=== PATIENT | female | born 1940 | race Caucasian/White ===

== ENCOUNTER → 2019-05-30 13:46 | Outpatient (BNVA) | payer MEDICARE, SELFPAY | PROVIDERS: Family Provider Nurse Practitioner Family; PCP Nurse Practitioner Family; Visit Provider Nurse Practitioner Family | DX: G89.29 Other chronic pain (principal); M16.11 Unilateral primary osteoarthritis, right hip; M25.552 Pain in left hip; M79.10 Myalgia, unspecified site | CPT/HCPCS: 73521; 84550; 85651; 86140; 86431 ==

== ENCOUNTER → 2019-07-04 11:37 | Outpatient (BNVA) | payer MEDICARE, SELFPAY | PROVIDERS: Visit Provider Internal Medicine | DX: N18.3 Chronic kidney disease, stage 3 (moderate) (principal) | CPT/HCPCS: 80048; 81001; 82310; 83735; 83970; 84100; 84550 ==

== ENCOUNTER → 2019-07-13 11:08 | Outpatient (BNVA) | payer MEDICARE, SELFPAY | PROVIDERS: Visit Provider Specialist | DX: M25.551 Pain in right hip (principal); M25.552 Pain in left hip | CPT/HCPCS: 73522; 73523 ==

== ENCOUNTER → 2019-07-21 14:53 | Outpatient (BNVA) | payer MEDICARE, SELFPAY | PROVIDERS: Visit Provider Nurse Practitioner Family | DX: R30.0 Dysuria (principal); R19.7 Diarrhea, unspecified; R39.9 Unspecified symptoms and signs involving the genitourinary system; B37.3 Candidiasis of vulva and vagina | CPT/HCPCS: 81001; 87086 ==

== ENCOUNTER → 2019-07-22 10:31 | Outpatient (BNVA) | payer MEDICARE, SELFPAY | PROVIDERS: Visit Provider Nurse Practitioner Family | DX: R19.7 Diarrhea, unspecified (principal) | CPT/HCPCS: 87493; 87505 ==

== ENCOUNTER → 2019-08-18 12:56 | Outpatient (BNVA) | payer MEDICARE, SELFPAY | PROVIDERS: Family Provider Nurse Practitioner Family; Visit Provider Specialist | DX: G43.909 Migraine, unspecified, not intractable, without status migrainosus (principal); Z87.891 Personal history of nicotine dependence | CPT/HCPCS: 99212 ==

== ENCOUNTER → 2019-11-09 11:13 | Outpatient (BNVA) | payer MEDICARE, SELFPAY | PROVIDERS: Visit Provider Internal Medicine | DX: N18.3 Chronic kidney disease, stage 3 (moderate) (principal) | CPT/HCPCS: 80048; 81000; 82310; 83735; 83970; 84100; 84550 ==

== ENCOUNTER 2019-12-27 12:14 | Outpatient (CLI) | payer MEDICARE, SELFPAY ==
--- NOTE | 2019-12-27 12:45 | USCV_ITS ---
Siri Landry Age: 79 Gender: F : 1940 Exam Date: 12/27/2019 12:25 Ordering Phys: Mariana Norman MD ([email or web address]) Technologist: Carol Alfaro Exam Location: [facility] Indication: HISTORY: Patient has history of varicose veins PROCEDURES: Bilateral duplex Venous Insufficiency study of the Deep and Superficial systems was carried out according to normal protocol with the patient in supine positon for deep system and dependent position for the superficial system. FINDINGS: There is no evidence of bilateral deep vein thrombosis. No evidence of superficial thrombosis in the bilateral saphenous system. No evidence of reflux was noted in the bilateral deep venous system. No venous reflux noted in the bilateral greater saphenous vein. No venous reflux noted in the bilateral small saphenous vein. CONCLUSIONS No evidence of DVT in the above-mentioned identifiable veins. No significant venous reflux Dr Deion Cancino MD FAC (Electronically Signed) Final Date: 29 December 2019 08:22 S
== END 2019-12-27 12:15 | disposition home or self-care (01) ==
LOC: RAD 12:15
PROVIDERS: Visit Provider Internal Medicine Cardiovascular Disease
DX: I83.93 Asymptomatic varicose veins of bilateral lower extremities (principal)
CPT/HCPCS: 93970

== ENCOUNTER → 2020-01-04 11:11 | Outpatient (BNVA) | payer MEDICARE, SELFPAY | PROVIDERS: Visit Provider Nurse Practitioner Family | DX: E03.8 Other specified hypothyroidism (principal); E55.9 Vitamin D deficiency, unspecified; E78.2 Mixed hyperlipidemia; K21.9 Gastro-esophageal reflux disease without esophagitis; N18.3 Chronic kidney disease, stage 3 (moderate); G47.00 Insomnia, unspecified | CPT/HCPCS: 80053; 80061; 82306; 84443; 85025 ==

== ENCOUNTER → 2020-01-10 11:42 | Outpatient (BNVA) | payer MEDICARE, SELFPAY | PROVIDERS: Visit Provider Nurse Practitioner Family | DX: N39.0 Urinary tract infection, site not specified (principal); M25.551 Pain in right hip; R30.0 Dysuria | CPT/HCPCS: 81003; 87086 ==

== ENCOUNTER → 2020-01-19 10:05 | Outpatient (BNVA) | payer MEDICARE, SELFPAY | DX: N39.0 Urinary tract infection, site not specified (principal) | CPT/HCPCS: 81000; 87086 ==

== ENCOUNTER → 2020-02-06 14:44 | Outpatient (BNVA) | payer MEDICARE, SELFPAY | PROVIDERS: Referring Provider Nurse Practitioner Family; Visit Provider Specialist | DX: M16.11 Unilateral primary osteoarthritis, right hip (principal) | CPT/HCPCS: 73502 ==

== ENCOUNTER → 2020-02-14 13:31 | Outpatient (BNVA) | payer MEDICARE, SELFPAY | PROVIDERS: PCP Nurse Practitioner Family; Referring Provider Specialist; Visit Provider Specialist | DX: G62.89 Other specified polyneuropathies (principal); Z87.891 Personal history of nicotine dependence | CPT/HCPCS: 95909 ==

== ENCOUNTER → 2020-02-17 09:02 | Outpatient (BNVA) | payer MEDICARE, SELFPAY | PROVIDERS: PCP Nurse Practitioner Family; Referring Provider Specialist; Visit Provider Specialist | DX: M25.551 Pain in right hip (principal); G31.84 Mild cognitive impairment of uncertain or unknown etiology; G62.9 Polyneuropathy, unspecified | CPT/HCPCS: 99213 ==

== ENCOUNTER → 2020-02-21 11:09 | Outpatient (BNVA) | payer MEDICARE, SELFPAY | PROVIDERS: Absent Provider Specialist; PCP Nurse Practitioner Family; Visit Provider Specialist | DX: R20.0 Anesthesia of skin (principal); R20.2 Paresthesia of skin | CPT/HCPCS: 82607; 82746; 83921 ==

== ENCOUNTER → 2020-03-01 13:29 | Outpatient (BNVA) | payer MEDICARE, SELFPAY | PROVIDERS: PCP Nurse Practitioner Family; Referring Provider Specialist; Visit Provider Anesthesiology Pain Medicine | DX: M47.816 Spondylosis without myelopathy or radiculopathy, lumbar region (principal); M25.551 Pain in right hip; M54.2 Cervicalgia; M54.9 Dorsalgia, unspecified; Z79.899 Other long term (current) drug therapy; Z87.891 Personal history of nicotine dependence; M79.18 Myalgia, other site | CPT/HCPCS: 20553; 99204; J1030; J3490 ==

== ENCOUNTER 2020-03-21 11:01 | Outpatient (CLI) | payer MEDICARE, SELFPAY ==
--- NOTE | 2020-03-21 11:45 | MR_ITS ---
WS: [id number] MRI LUMBAR SPINE NONCONTRAST TECHNIQUE: Sagittal T1, T2 and STIR imaging. Axial T1 and T2 imaging. CLINICAL INFORMATION: M54.9 Dorsalgia, unspecified COMPARISON: None. FINDINGS: Mild lumbar curve. No acute compression. Incidental benign heterogeneous bone marrow signal throughou t the lumbar spine and pelvis. No acute compression fractures. L1-L2: Normal. L2-L3: Minimal disc bulging. Mild facet arthropathy. Spinal canal and foramen are patent. L3-L4: Slight anterolisthesis L3 on L4. Mild disc bulging with mild central canal stenosis. Impingeme nt on the traversing left greater than right L4 nerve roots. Moderate facet arthropathy. Mild left fo raminal narrowing. L4-L5: Mild disc bulging with moderate central canal stenosis. Impingement on the traversing left L5 nerve root. Mild left foraminal narrowing. Moderate facet arthropathy with small facet effusions. L5-S1: Mild disc bulging with slight effacement of the ventral thecal sac. Tiny right annular fissure . Moderate facet arthropathy. Small right facet effusion. Foramen are patent. Visualized pelvic bony structures: Normal. Paravertebral soft tissues: Normal. MR/MR lumbar spine wo con* [id number] IMPRESSION: 1. Mild lumbar curve. No acute compression. No high-grade central canal stenos is. 2. Mild central canal stenosis L3-4 with impingement on the traversing left gr eater than right L4 nerve roots. 3. Moderate central canal stenosis L4-5 impinges the traversing left L5 nerve root with mild left foraminal narrowing. 4. Small bilateral facet effusions L4-5 with moderate facet arthropathy likely inflammatory synovitis. 5. Moderate facet arthropathy L3-L5.
== END 2020-03-21 11:02 | disposition home or self-care (01) ==
LOC: RADSHAW 11:08
PROVIDERS: PCP Nurse Practitioner Family; Visit Provider Anesthesiology Pain Medicine
DX: M48.061 Spinal stenosis, lumbar region without neurogenic claudication (principal); M47.816 Spondylosis without myelopathy or radiculopathy, lumbar region
CPT/HCPCS: 72148

== ENCOUNTER → 2020-03-29 12:39 | Outpatient (BNVA) | payer MEDICARE, SELFPAY | PROVIDERS: PCP Nurse Practitioner Family; Visit Provider Anesthesiology Pain Medicine | DX: M47.816 Spondylosis without myelopathy or radiculopathy, lumbar region (principal); M25.551 Pain in right hip; M54.9 Dorsalgia, unspecified; M62.838 Other muscle spasm; M54.2 Cervicalgia | CPT/HCPCS: 72050; 99213 ==

== ENCOUNTER 2020-03-29 13:43 | Outpatient (CLI) | payer MEDICARE, SELFPAY ==
--- NOTE | 2020-03-29 13:57 | XR_ITS ---
WS: [id number] Cervical spine, AP, lateral odontoid and both obliques, 03/29/2020 Clinical Data: pain Comparison: Cervical spine, 04/28/2016. Findings: No compression fractures are seen. There is degenerative disc narrowing at C4-C5, C5-6 and C6-C7. There is loss of the normal lordotic curvature. Osteoarthritic changes present from C4 through C7 with anterior and posterior spurring. The oblique films show foraminal narrowing at C5-C6 bilater ally. There is no prevertebral soft tissue swelling. The odontoid is unremarkable. The soft tissues o f the neck and the lung apices are normal. XR/XR cervical spine 4-5V [id number] Impression: 1. Osteoarthritic change from C4 through C7 with accompanying disc space narrow ing which is worse slightly than on the prior study. 2. Bilateral foraminal narrowing at C5-C6.
== END 2020-03-29 13:44 | disposition home or self-care (01) ==
PROVIDERS: PCP Nurse Practitioner Family; Visit Provider Anesthesiology Pain Medicine
DX: M54.2 Cervicalgia (principal)
CPT/HCPCS: 72050

== ENCOUNTER → 2020-04-25 09:31 | Outpatient (BNVA) | payer MEDICARE, SELFPAY | PROVIDERS: PCP Nurse Practitioner Family; Visit Provider Family Medicine | DX: N18.30 Chronic kidney disease, stage 3 unspecified (principal); E03.8 Other specified hypothyroidism; E55.9 Vitamin D deficiency, unspecified; E78.2 Mixed hyperlipidemia; R30.0 Dysuria | CPT/HCPCS: 80048; 80053; 80061; 81000; 82306; 82310; 82607; 83970; 84100; 84443; 84550; 85025 ==

== ENCOUNTER → 2020-06-06 09:23 | Outpatient (BNVA) | payer MEDICARE, SELFPAY | PROVIDERS: PCP Nurse Practitioner Family; Visit Provider Specialist | DX: G30.9 Alzheimer's disease, unspecified (principal); F02.80 Dementia in other diseases classified elsewhere, unspecified severity, without behavioral disturbance, psychotic disturbance, mood disturbance, and anxiety; G62.9 Polyneuropathy, unspecified | CPT/HCPCS: 96116; 99213 ==

== ENCOUNTER → 2020-06-21 13:02 | Outpatient (BNVA) | payer MEDICARE, SELFPAY | PROVIDERS: PCP Nurse Practitioner Family; Visit Provider Anesthesiology Pain Medicine | DX: M47.816 Spondylosis without myelopathy or radiculopathy, lumbar region (principal); M54.9 Dorsalgia, unspecified; M54.2 Cervicalgia; M25.551 Pain in right hip; M62.838 Other muscle spasm | CPT/HCPCS: 99215 ==

== ENCOUNTER → 2020-07-11 14:20 | Outpatient (BNVA) | payer MEDICARE, SELFPAY | PROVIDERS: PCP Nurse Practitioner Family; Visit Provider Specialist | DX: M16.11 Unilateral primary osteoarthritis, right hip (principal); M25.551 Pain in right hip | CPT/HCPCS: 73502 ==

== ENCOUNTER → 2020-07-19 10:59 | Outpatient (BNVA) | payer MEDICARE, SELFPAY | PROVIDERS: PCP Nurse Practitioner Family; Visit Provider Nurse Practitioner Family | DX: R13.10 Dysphagia, unspecified (principal); K21.9 Gastro-esophageal reflux disease without esophagitis; E55.9 Vitamin D deficiency, unspecified; I10 Essential (primary) hypertension; E78.2 Mixed hyperlipidemia; Z79.899 Other long term (current) drug therapy | CPT/HCPCS: 80053; 80061; 81000; 82306; 82607; 83735; 84443; 85025; 87086 ==

== ENCOUNTER → 2020-07-25 14:03 | Outpatient (BNVA) | payer MEDICARE, SELFPAY | PROVIDERS: PCP Nurse Practitioner Family; Visit Provider Anesthesiology Pain Medicine | DX: G89.29 Other chronic pain (principal); M54.9 Dorsalgia, unspecified; M54.2 Cervicalgia; M25.551 Pain in right hip; M47.816 Spondylosis without myelopathy or radiculopathy, lumbar region; M62.838 Other muscle spasm | CPT/HCPCS: 99214 ==

== ENCOUNTER 2020-08-06 10:12 | Outpatient (CLI) | payer MEDICARE, SELFPAY ==
--- NOTE | 2020-08-06 10:31 | FL_ITS ---
WS: [id number] Exam: FL upper GI w air* [id number] Date/Time of Exam: 08/06/2020 10:31 AM Reason For Exam: K21.9 - Gastro-esophageal reflux disease without esophagitis Swallowing function was normal. The esophagus was smooth in contour with grossly normal motility. No hiatal hernia noted. No gastroesophageal reflux was noted during fluoroscopic evaluation. The stomac h is freely distensible. Prominent gastric mucosa suggesting mild gastritis. On air contrast images a small focal collection of barium is seen in the body the stomach near the greater curvature. An ulce r is not excluded but this is not demonstrated on all images. No sign of duodenal ulcer. Barium spill s freely into the proximal small bowel. FL/FL upper GI w air* [id number] IMPRESSION: 1. Normal esophageal motility. No evidence of hiatal hernia or gastroesophageal reflux during fluoroscopy. 2. Prominent gastric and duodenal mucosa suggesting gastroduodenitis. 3. Small focal collection of the barium identified in the body the stomach near the lesser curvature on limited images. A small gastric ulcer is not excluded but this is an equivocal finding.
== END 2020-08-06 10:13 | disposition home or self-care (01) ==
LOC: RADWPI 10:28
PROVIDERS: PCP Nurse Practitioner Family; Visit Provider Surgery
DX: K21.9 Gastro-esophageal reflux disease without esophagitis (principal)
CPT/HCPCS: 74246

== ENCOUNTER → 2020-08-07 13:10 | Outpatient (BNVA) | payer MEDICARE, SELFPAY | PROVIDERS: PCP Nurse Practitioner Family; Visit Provider Anesthesiology Pain Medicine | DX: M54.16 Radiculopathy, lumbar region (principal); M54.9 Dorsalgia, unspecified | CPT/HCPCS: 64483; 64484; J1100; J3490 ==

== ENCOUNTER → 2020-08-23 11:08 | Outpatient (BNVA) | payer MEDICARE, SELFPAY | PROVIDERS: PCP Nurse Practitioner Family; Visit Provider Anesthesiology Pain Medicine | DX: M47.816 Spondylosis without myelopathy or radiculopathy, lumbar region (principal); M54.9 Dorsalgia, unspecified; M16.11 Unilateral primary osteoarthritis, right hip; G62.9 Polyneuropathy, unspecified; M54.2 Cervicalgia; M62.838 Other muscle spasm; Z79.891 Long term (current) use of opiate analgesic | CPT/HCPCS: 99215 ==

== ENCOUNTER 2020-08-31 08:16 | Outpatient (CLI) | payer MEDICARE, SELFPAY ==
--- NOTE | 2020-08-31 08:20 | CT_ITS ---
WS: [id number] CT scan of the abdomen and pelvis with Oral and IV contrast. Additional two-dimensional coronal and s agittal reconstruction was performed. 08/31/2020 Clinical Data: R13.10 - Dysphagia, unspecified Comparison: None. DLP: 910.[address] scans at [facility] use at least one of these dose optimization techniques: automat ed exposure control; mA and/or kV adjustment per patient size (includes targeted exams where dose is matched to clinical indication); or iterative reconstruction. Findings: The lower lungs show no nodules, masses or effusions. The liver, gallbladder, spleen, adrenal glands and pancreas are normal. The right adrenal gland is di fficult to identify. The kidneys show equal bilateral contrast excretion with no cyst or masses. No hydronephrosis or nubia l calculi were seen. The abdominal aorta is normal in size with calcification in the wall. No appendicitis or diverticulitis is seen. Oral contrast is in the stomach and small bowel and there is no bowel dilatation. No abscess, adenopathy, ascites, mass, obstruction or free air is seen. The bladder is unremarkable. The uterus is absent. No inguinal hernia is seen. The bones of the lower thorax, lumbar spine, pelvis, and hips show only minimal degenerative change o f the lumbar vertebral bodies with a minimal subluxations at L3-L4 and L4-L5. CT/CT abdomen pelvis w con* [id number] Impression: Negative for acute intra-abdominal or pelvic abnormalities.
[2020-08-31] MEDS: iohexol 300 mg/mL 50 mL Btl IV (08:22)
[2020-08-31] MEDS: iodixanol 320 mg/mL 100mL Btl IV (09:43)
== END 2020-08-31 08:17 | disposition home or self-care (01) ==
PROVIDERS: PCP Nurse Practitioner Family; Visit Provider Surgery
DX: R13.10 Dysphagia, unspecified (principal)
CPT/HCPCS: 74177; Q9967

== ENCOUNTER → 2020-09-13 10:00 | Outpatient (BNVA) | payer MEDICARE, SELFPAY | PROVIDERS: PCP Nurse Practitioner Family; Visit Provider Surgery | DX: R13.10 Dysphagia, unspecified (principal); Z20.822 Contact with and (suspected) exposure to COVID-19 | CPT/HCPCS: 87635 ==

== ENCOUNTER 2020-09-18 05:58 | Day surgery (SDC) | payer MEDICARE, SELFPAY ==
[2020-09-14 12:24] VITALS: BMI 17.5
--- NOTE | 2020-09-18 06:06 | W.PM.OPSFHP ---
Same Day Surgery H&P Indication for Procedure/HPI DATE OF PROCEDURE: September 18, 2020 CHIEF COMPLAINT/INDICATIONFOR SURGICAL PROCEDURE: Difficulty in swallowing PREOP DIAGNOSIS: Dysphagia PLANNED PROCEDRUE: Operation Date: 09/18/20 07:00 Proposed Procedures p EGD 28471 R13.10(Not Applicable) - Yovani Castorena MD 08/13/2020 clinic visit HPI Patient comes today status post upper GI study that was requested by me that showed; IMPRESSION: 1. Normal esophageal motility. No evidence of hiatal hernia or gastroesophageal reflux during fluoroscopy. 2. Prominent gastric and duodenal mucosa suggesting gastroduodenitis. 3. Small focal collection of the barium identified in the body the stomach near the lesser curvature on limited images. A small gastric ulcer is not excluded but this is an equivocal finding. Patient did not get the CT scan of the abdomen and pelvis yet based on the clinical concern of epigastric fullness and concerning to be a mass. Interim history 09/18/2020 Patient comes today for diagnostic EGD CT scan of the abdomen and pelvis showed Findings: The lower lungs show no nodules, masses or effusions. The liver, gallbladder, spleen, adrenal glands and pancreas are normal. The right adrenal gland is difficult to identify. The kidneys show equal bilateral contrast excretion with no cyst or masses. No hydronephrosis or renal calculi were seen. The abdominal aorta is normal in size with calcification in the wall. No appendicitis or diverticulitis is seen. Oral contrast is in the stomach and small bowel and there is no bowel dilatation. No abscess, adenopathy, ascites, mass, obstruction or free air is seen. The bladder is unremarkable. The uterus is absent. No inguinal hernia is seen. The bones of the lower thorax, lumbar spine, pelvis, and hips show only minimal degenerative change of the lumbar vertebral bodies with a minimal subluxations at L3-L4 and L4-L5. CT/CT abdomen pelvis w con* [id number] Impression: Negative for acute intra-abdominal or pelvic abnormalities. ROS All systems have been reviewed negative except as per the above or per problem list Medications/Allergies* Home Medications Medication Instructions Recorded Confirmed Type [id number] 250 1 tab PO DAILY PRN 05/30/19 09/14/20 History mg-250 mg-65 mg tablet calcium carbonate 500 mg calcium 500 mg PO DAILY tab 05/30/19 09/14/20 History (1,250 mg) chewable tablet cyanocobalamin (vitamin B-12) 1,000 mcg PO DAILY cap 05/30/19 09/14/20 History 1,000 mcg capsule pyridoxine (vitamin B6) 100 mg 50 mg PO DAILY tab 05/30/19 09/14/20 History tablet calcitriol 0.25 mcg capsule 0.25 mcg PO DAILY cap 08/18/19 09/14/20 History ascorbate calcium (vitamin C) 500 500 mg PO DAILY 01/04/20 09/14/20 History mg tablet biotin 1 mg capsule 1 mg PO DAILY 06/04/20 09/14/20 History betamethasone dipropionate 1 applic TOPICAL DIRECTED 09/14/20 09/14/20 History [Diprolene] cholecalciferol (vitamin D3) 3,000 unit PO DAILY 09/14/20 09/14/20 History pantoprazole 40 mg PO DAILY 09/14/20 09/14/20 History Allergies/Adverse Reactions Allergy/AdvReac Type Severity Reaction Status Date / Time epinephrine Allergy Unknown Verified 09/18/20 06:07 morphine Allergy ADR-Vomitin Verified 09/18/20 06:07 g Penicillins Allergy Unknown Verified 09/18/20 06:07 Pertinent History/Comorbid Conditions* Medical History (Updated 08/01/20 @ 08:43 by Yovani Castorena MD) Adult onset hypothyroidism Back Pain Carotid stenosis Chronic hip pain, bilateral Chronic migraine COPD (chronic obstructive pulmonary disease) Essential hypertension Fibromyalgia History of TIA (transient ischemic attack) Insomnia Lower extremity edema Mild cognitive impairment Mixed hyperlipidemia Myalgia Non-rheumatic aortic regurgitation Primary osteoarthritis of right hip Stage 3 chronic kidney disease Vaginal atrophy Venous insufficiency Vitamin D deficiency Surgical History (Updated 05/29/20 @ 13:52 by Julissa Carlos APN, [id number]) History of cataract extraction History of hysterectomy (~1977) TVH; ovaries spared. Performed due to HMB. Family History (Updated 05/29/20 @ 13:19 by Corrine Irving) Diabetes Father Family/Other Father's side in general Brother Heart disease Father Mother Brother Breast cancer Family/Other Maternal Aunt-- dx age 50's Hypertension Father Mother Brother Stroke Father Denies family history of Colon cancer Ovarian cancer Hypercholesteremia Uterine cancer Thyroid disease Social History Smoking and tobacco status: never smoked Second hand smoke exposure: No Alcohol intake: never Caregiver/support person: Yes Lives independently: Yes Household members: spouse Marital status: service: No Current occupational status: retired History of recent travel: No Current gender identity: Female Pertinent Exam Findings alert, oriented x 3, clear to auscultation bilaterally, regular rate & rhythm and procedure specific exam findings (Abdominal examination Nondistended soft no guarding or rigidity) Recommendations Surgery/Procedure today (Diagnostic EGD) Other Plans: Plan of care; After thorough history and physical examination and reviewing the chart, plan to perform a diagnostic esophagogastroduodenoscopy with possible biopsy in the GI lab. I discussed with the patient in detail the risk,benefits,alternatives and indications.The risk of aspiration, bleeding, soft tissue injury, perforation of the stomach/esophagus and other potential concomitant complications were explained to the patient in details,aslo the potential need for Thoracic and or Abdominal surgery to repair any complications.The patient understood this well and did agree to proceed. Rationale was carefully and clearly discussed with the patient.Appropriate informed consent have been reviewed and signed All questions have been answered and all concerns have been addressed to patient's satisfaction. Patient is consented about refusal of transfusion of blood or blood products Coding Level of Care Code Acute Case Managers for [facility] Fwd
[2020-09-18 06:20] VITALS: BP 138/61; PULSE 53; RESP 16; TEMP 36.3; O2SAT 98
[2020-09-18] MEDS: sodium chloride 0.9% 1,000 ML 30 ML IV (06:29)
--- NOTE | 2020-09-18 06:59 | ANES.PREANE2 ---
Pre-Anesthetic Assessment Pre-Anesthetic Assessment: Height/Weight: Height 1.7 m Weight 50.802 kg Temp Pulse Resp BP Pulse Ox 97.3 F L 53 L 16 138/61 98 09/18/20 06:20 09/18/20 06:20 09/18/20 06:20 09/18/20 06:20 09/18/20 06:20 Preop Diagnosis: Dysphagia Proposed Procedure: Operation Date: 09/18/20 07:00 Proposed Procedures p EGD 21157 R13.10(Not Applicable) - Yovani Castorena MD Was Beta Max taken within 24 hours: N/A Was Clonidine taken within 24 hours: N/A Last intake: Intake Last Liquid Date 09/17/20 Last Liquid Time 17:30 Last Solid Date 09/17/20 Last Solid Time 17:30 Social: Social History: No alcohol and No tobacco Exam: Pre-Anes Outpt Exam: alert, oriented x 3, clear to auscultation bilaterally and regular rate & rhythm Airway: Submandibular: WNL Cervical ROM: WNL MP: 2 Dentition: Full History/ROS: No significant history except as noted and No significant complaints Pulmonary: Pulmonary: COPD : : None reported Hepatic: Hepatic: None reported GI: GI: Hiatus hernia Metabolic: Metabolic: Thyroid Musc/skel: Musc/skel: Fibromyalgia, OA/DJD and Weakness Neuropsych: Neuropsych: Anxiety Anesthetic Plan: ASA status: 3 Anesthesia: MAC Risk of > 500 ml blood loss (7ml/kg in children): No Meds/Allergies Current Medications: Current Medications Generic Name Dose Route Start Last Admin Trade Name Freq PRN Reason Stop Dose Admin Sodium Chloride 1,000 mls @ 30 ml s/hr 09/18/20 06:15 09/18/20 06:29 Sodium Chloride 0.9% IV 09/19/20 06:14 30 mls/hr .Q24H GUDELIA Administration PFSH Anesthesia PFSH: Medical History Adult onset hypothyroidism Back Pain Carotid stenosis Chronic hip pain, bilateral Chronic migraine COPD (chronic obstructive pulmonary disease) Essential hypertension Fibromyalgia History of TIA (transient ischemic attack) Insomnia Lower extremity edema Mild cognitive impairment Mixed hyperlipidemia Myalgia Non-rheumatic aortic regurgitation Primary osteoarthritis of right hip Stage 3 chronic kidney disease Vaginal atrophy Venous insufficiency Vitamin D deficiency Surgical History History of cataract extraction History of hysterectomy (~1977) TVH; ovaries spared. Performed due to HMB. Family History Father Stroke Diabetes Heart disease Hypertension Mother Hypertension Heart disease Daughter No problems noted. Family/Other Breast cancer Maternal Aunt-- dx age 50's Diabetes Father's side in general Brother Diabetes Heart disease Hypertension Denies family history of Colon cancer Ovarian cancer Hypercholesteremia Uterine cancer Thyroid disease Social History Smoking and tobacco status: never smoked Second hand smoke exposure: No Alcohol intake: never Caregiver/support person: Yes Lives independently: Yes Household members: spouse Marital status: service: No Current occupational status: retired History of recent travel: No Current gender identity: Female Data Anesthesia Cardiac Studies: No Data to Display
[2020-09-18 07:09] VITALS: BP 109/51; PULSE 52; RESP 20; TEMP 36.2; O2SAT 95
[2020-09-18 07:58] VITALS: BP 140/67; PULSE 54; RESP 18; TEMP 36.6; O2SAT 98
--- NOTE | 2020-09-18 12:27 | ANE.PACU2 ---
Inpatient post-anesthesia follow up: Airway intact: Yes Vital signs: Temperature 97.8 F Pulse Rate 54 Respiratory Rate 18 Blood Pressure 140/67 Pulse Oximetry 98 Oxygen Delivery Me thod Room Air Oxygen Flow Rate 3 Fraction of Inspir ed Oxygen Hydration adequate: Yes Nausea and vomiting: No Pain level: 1 Mental status: Baseline
[2020-09-19 14:11] LABS: H. Pylori / CLO Test Negative
== END 2020-09-18 08:00 | disposition home or self-care (01) ==
PROVIDERS: PCP Nurse Practitioner Family; Visit Provider Surgery
PROC: 0DJ08ZZ Inspection of Upper Intestinal Tract, Via Natural or Artificial Opening Endoscopic (ICD-10-PCS; CPT 43235; principal; 2020-09-18 07:00)
DX: R13.10 Dysphagia, unspecified (principal); K29.70 Gastritis, unspecified, without bleeding; K44.9 Diaphragmatic hernia without obstruction or gangrene; E03.9 Hypothyroidism, unspecified; J44.9 Chronic obstructive pulmonary disease, unspecified; M79.7 Fibromyalgia; E78.2 Mixed hyperlipidemia; M16.11 Unilateral primary osteoarthritis, right hip; E55.9 Vitamin D deficiency, unspecified; I12.9 Hypertensive chronic kidney disease with stage 1 through stage 4 chronic kidney disease, or unspecified chronic kidney disease; N18.30 Chronic kidney disease, stage 3 unspecified; Z82.49 Family history of ischemic heart disease and other diseases of the circulatory system; F41.9 Anxiety disorder, unspecified
CPT/HCPCS: 43239; 87077; 96360; 96361; J2704; J7030

== ENCOUNTER → 2020-10-26 10:35 | Outpatient (BNVA) | payer MEDICARE, SELFPAY | PROVIDERS: PCP Nurse Practitioner Family; Visit Provider Nurse Practitioner Family | DX: I10 Essential (primary) hypertension (principal); E55.9 Vitamin D deficiency, unspecified; J44.9 Chronic obstructive pulmonary disease, unspecified; E78.2 Mixed hyperlipidemia; E03.8 Other specified hypothyroidism; K21.9 Gastro-esophageal reflux disease without esophagitis; Z79.899 Other long term (current) drug therapy | CPT/HCPCS: 80053; 80061; 82306; 82607; 83036; 84443; 85025 ==

== ENCOUNTER 2020-10-31 06:00 | Outpatient (CLI) | payer MEDICARE, SELFPAY | END 2020-10-31 06:01 | disposition home or self-care (01) | LOC: LAB 10-01 12:30 | PROVIDERS: PCP Nurse Practitioner Family; Visit Provider Internal Medicine | DX: I12.9 Hypertensive chronic kidney disease with stage 1 through stage 4 chronic kidney disease, or unspecified chronic kidney disease (principal); N18.30 Chronic kidney disease, stage 3 unspecified; E03.9 Hypothyroidism, unspecified | CPT/HCPCS: 81000; 82310; 83735; 83970; 84100; 84550 ==

== ENCOUNTER → 2021-02-06 12:58 | Outpatient (BNVA) | payer MEDICARE, SELFPAY | PROVIDERS: PCP Nurse Practitioner Family; Visit Provider Nurse Practitioner Family | DX: I10 Essential (primary) hypertension (principal); E78.2 Mixed hyperlipidemia; M81.0 Age-related osteoporosis without current pathological fracture; F02.80 Dementia in other diseases classified elsewhere, unspecified severity, without behavioral disturbance, psychotic disturbance, mood disturbance, and anxiety; E55.9 Vitamin D deficiency, unspecified; L65.9 Nonscarring hair loss, unspecified; E03.8 Other specified hypothyroidism; K21.9 Gastro-esophageal reflux disease without esophagitis; Z68.1 Body mass index [BMI] 19.9 or less, adult | CPT/HCPCS: 80053; 80061; 82306; 82607; 83735; 84439; 84443; 85025 ==

== ENCOUNTER 2021-02-18 15:39 | Outpatient (CLI) | payer MEDICARE, SELFPAY ==
--- NOTE | 2021-02-18 15:45 | XR_ITS ---
WS: [id number] Bone mineral density performed on a [employer], 02/18/2021 Clinical data: M81.0 - Age-related osteoporosis without current patholog... Comparison study: None. Findings: The first 4 lumbar vertebral bodies demonstrated the bone mineral density of 0.932 g/cm2 for a young adult T score of -2.1. There is a levoscoliosis of the lumbar spine. Measurement of the left hip reveals a bone mineral density of 0.807 g/cm2 with a young adult T score of -1.6. Measurement of the right hip reveals the bone mineral density of 0.822 g/cm2 for young adult T score of -1.5. XR/XR DEXA axial skeleton* [id number] Impression: Osteopenia of the lumbar spine and both hips.
== END 2021-02-18 15:40 | disposition home or self-care (01) ==
PROVIDERS: PCP Nurse Practitioner Family; Visit Provider Nurse Practitioner Family
DX: M81.0 Age-related osteoporosis without current pathological fracture (principal)
CPT/HCPCS: 77080; 80053; 80061; 82306; 82607; 83735; 84439; 84443; 85025

== ENCOUNTER 2021-04-09 10:31 | Outpatient (CLI) | payer MEDICARE, SELFPAY ==
--- NOTE | 2021-04-09 10:38 | FL_ITS ---
WS: [id number] MODIFIED BARIUM SWALLOW HISTORY: Other dysphagia FLUOROSCOPY TIME: 1.8 minutes. Modified barium swallow was performed by the speech pathologist. Fluoroscopy was provided with the pa tient in a lateral projection. Multiple food consistencies were provided. No aspiration or laryngeal penetration was evident. There was significant spillage of the fluids into the vallecula and piriform sinuses throughout the examination. Mild difficulty in clearing the resid ual and initiating the swallow. Barium tablet swallowed without difficulty. FL/FL barium swallow modifd [id number] IMPRESSION: 1. No laryngeal aspiration or penetration. 2. Moderate amount of spillage of liquids into the vallecula and piriform sinu ses. Please see speech therapist report also for recommendations.
== END 2021-04-09 10:32 | disposition home or self-care (01) ==
LOC: RAD 10:35
PROVIDERS: PCP Nurse Practitioner Family; Visit Provider Specialist
DX: R13.19 Other dysphagia (principal)
CPT/HCPCS: 74230; 92611

== ENCOUNTER → 2021-04-17 10:08 | Outpatient (BNVA) | payer MEDICARE, SELFPAY | PROVIDERS: PCP Nurse Practitioner Family; Visit Provider Internal Medicine | DX: I12.9 Hypertensive chronic kidney disease with stage 1 through stage 4 chronic kidney disease, or unspecified chronic kidney disease (principal); N18.30 Chronic kidney disease, stage 3 unspecified | CPT/HCPCS: 80048; 81000; 82040; 82310; 83735; 83970; 84100; 84550; 85018 ==

== ENCOUNTER 2021-05-01 12:19 | Emergency (ER) | payer MEDICARE, SELFPAY ==
[2021-05-01 13:00] VITALS: BP 153/77; PULSE 57; RESP 18; TEMP 36.9; O2SAT 99; BMI 18.6
--- NOTE | 2021-05-01 14:24 | CT_ITS ---
WS: [id number] CT cervical spin wo con* [id number] REASON FOR EXAM: fall with headache IV CONTRAST ADMINISTERED: Noncontrast TOTAL EXAM DLP: 308.[address] scans at [facility] use at least one of these dose optimization techniques: automat ed exposure control; mA and/or kV adjustment per patient size (includes targeted exams where dose is matched to clinical indication); or iterative reconstruction. FINDINGS: Reversal of the normal lordosis of the cervical spine. No significant compression deformity or other focal abnormality of the cervical vertebrae. The odonto id is normal. Moderately severe degenerative changes in the facet joints at C2-C3, C3-C4, and C4-C5. There is degen erative anterolisthesis of 2 mm of C3 on C4. Degenerative anterolisthesis of 2 mm of C4 on C5. Normal facet joint alignment. No facet fracture. Moderate severe narrowing of the intervertebral disc spaces C4-C7. Degenerative gas in the disc space at C5-C6 with gas extending into the C5 and C6 vertebral bodies. CT/CT cervical spin wo con* [id number] IMPRESSION: No acute abnormality. Multilevel degenerative spondylosis.
--- NOTE | 2021-05-01 14:24 | CT_ITS ---
WS: [id number] CT head wo con* [id number] REASON FOR EXAM: fall w/ headache IV CONTRAST ADMINISTERED: Noncontrast TOTAL EXAM DLP: 713.[address] scans at [facility] use at least one of these dose optimization techniques: automat ed exposure control; mA and/or kV adjustment per patient size (includes targeted exams where dose is matched to clinical indication); or iterative reconstruction. FINDINGS: Bony calvarium and the base of the skull are intact. Normal zygomatic arches. Normal bony orbits. No midline shift or other significant mass effect. No findings of intracranial hemorrhage. No extra-axial fluid collection. No acute focal brain parenchymal abnormality. Mild enlargement of the ventricles and CSF spaces about the brain. The examination is unchanged compared to previous study of 07/23/2017. CT/CT head wo con* [id number] IMPRESSION: Changes of the aging brain. No acute intracranial abnormality.
--- NOTE | 2021-05-01 14:43 | ED_ITS ---
HPI - Headache General: Chief Complaint: Headache Stated Complaint: HEADACHE,FALL THIS A.M. Time Seen by Provider: 05/01/21 14:16 History of Present Illness: HPI Narrative: Patient is an 80-year-old female comes to the ED with headache. Patient says she has a history of migraines. She states that had been a couple years since she has had a bad migraine. Yesterday she started developing a mild migraine but that resolved with medication. She then got up this morning and describes feeling a little off. She said her legs started hurting bilaterally and she also reported feeling a little dizzy and confused. She then went down onto the ground because she was worried she might pass out. She denies any loss of consciousness but says that when she was down on the ground she could not remember how to get back up. While on the ground she started developing migraine located the right retro- orbital. She was finally able to figure out how to get back up but still reported a little bit of confusion and felt out of it. Here in the ED her migraine is now rated about a 5 out of 10 and she says it is manageable. All her other symptoms of bilateral leg pain, confusion and dizziness have completely resolved. Denies any other neurological symptoms such as weakness to 1 side of her body, numbness/tingling to face or extremities, vision changes. Denies any chest pain or shortness of breath. Associated symptoms: Reports confusion (resolved); Deny chest pain, fever(s), nausea, rash or vomiting Review of Systems Const: Denies: fever(s), chills or fatigue Eyes: Denies: change in vision or eye discomfort ENMT: Denies: throat pain, odynophagia, nasal discharge or nasal congestion Card: Denies: chest pain, palpitations, edema, swelling of feet/ankles, dyspnea on exertion or orthopnea Resp: Denies: dyspnea, productive cough or non-productive cough GI: Denies: abdominal pain, nausea, vomiting, diarrhea, constipation or hematochezia : Denies: flank pain, dysuria or hematuria Musc: Denies: neck pain, back pain or extremity swelling Skin/Breast: Denies: rash or new lesions Neuro: Reports: headache(s), lack of coordination (trouble moving bilateral legs-Resolved ), dizziness (Resolved) and confusion (resolved); Denies: numbness in extremities or weakness in extremities PFSH ED PFSH: Medical History Adult onset hypothyroidism Back Pain Carotid stenosis Chronic hip pain, bilateral Chronic migraine COPD (chronic obstructive pulmonary disease) Epigastric pain Essential hypertension Fibromyalgia Gastritis Hiatal hernia History of TIA (transient ischemic attack) Insomnia Lower extremity edema Mild cognitive impairment Mixed hyperlipidemia Myalgia Non-rheumatic aortic regurgitation Primary osteoarthritis of right hip Shortness of breath Stage 3 chronic kidney disease Vaginal atrophy Venous insufficiency Vitamin D deficiency Surgical History History of cataract extraction History of hysterectomy (~1977) TVH; ovaries spared. Performed due to HMB. Family History Father Stroke Diabetes Heart disease Hypertension Mother Hypertension Heart disease Daughter No problems noted. Family/Other Breast cancer Maternal Aunt-- dx age 50's Diabetes Father's side in general Brother Diabetes Heart disease Hypertension Denies family history of Colon cancer Ovarian cancer Hypercholesteremia Uterine cancer Thyroid disease Social History Smoking and tobacco status: never smoked Second hand smoke exposure: No Alcohol intake: never Caregiver/support person: Yes Lives independently: Yes Household members: spouse Marital status: service: No Current occupational status: retired History of recent travel: No Current gender identity: Female Physical Exam Const: COMMON NORMALS: no acute distress, patient oriented x3 and alert GENERAL APPEARANCE: cooperative and comfortable HENMT: COMMON NORMALS: normocephalic HEAD & SCALP: normocephalic MOUTH: Normal oral and palatal mucosa present THROAT: posterior oropharynx normal and uvula midline Neck/C-Spine: COMMON NORMALS: supple GENERAL: Yes normal visual inspection Resp: COMMON NORMALS: normal respiratory effort, No retractions, No use of accessory muscles and clear to auscultation bilaterally AUSCULTATION: clear to auscultation bilaterally Cardio: COMMON NORMALS: regular rate, regular rhythm, S1 normal heart sound present, S2 normal heart sound present, No gallops present (Cardio), No clicks present (Cardio), No murmurs present (Cardio) and Peripheral pulses 2+ throughout RATE: regular rate RHYTHM: regular rhythm HEART SOUNDS: S1 normal heart sound present and S2 normal heart sound present PERIPHERAL PULSES: Peripheral pulses 2+ throughout GI: COMMON NORMALS: Normal to inspection, nondistended, normoactive bowel sounds present, Soft to palpation, non-tender and no masses PALPATION: Yes Soft to palpation : COMMON NORMALS: Yes no CVA tenderness BLADDER/KIDNEY EXAM: Yes no CVA tenderness Back/Pelvis: COMMON NORMALS: no CVA tenderness Extremity: COMMON NORMALS: normal to inspection Neuro: COMMON NORMALS: patient oriented x3, CN's II-XII intact bilaterally, moves all extremities, no focal motor deficits and no sensory deficits noted SENSORIUM/ORIENTATION: Yes alert SENSORY EXAM: Yes extremities (intact) MOTOR EXAM: 5/5 motor strength present throughout Skin: GENERAL SKIN EXAM: dry skin Course Reevaluation(s): Reevaluation #1: Patient's migraine she says is very minimal now and she has no other symptoms. Her symptoms of confusion, coordination with lower extremities and dizziness all resolved upon arrival to the ED and symptoms have not returned while here in the ED. Patient says she feels back to normal and is ready for discharge Time: 16:01 Vital Signs: Vital signs: Vital Signs Temperature 98.5 F 05/01/21 13:00 Pulse Rate 56 L 05/01/21 16:26 Respiratory Rate 17 05/01/21 16:26 Blood Pressure 149/67 05/01/21 16:26 Pulse Oximetry 98 05/01/21 16:26 MDM - Headache MDM Narrative: Medical decision making narrative: Patient is an 80-year-old female that comes to the ED with a migraine. PMH migraines. She also had some possible strokelike symptoms that resolved upon arrival to the ED. She took an Excedrin to help with her migraine before coming in the ED and her migraine has improved. She did not need any further medication help with migraine while here in the ED. Vitals stable. Neuro exam was normal and no deficits seen. CT head showed no acute findings. Patient diagnosed with a migraine and was discharged home and told to follow-up with her PCP in the next 5-7 days for reevaluation. Return to ED precautions given. Patient understood and agree with plan. Imaging Data^: CT Head: Attestation: I personally reviewed and interpreted this imaging study as follows: Radiologist's impression: [address] [address] [address] Scan Report Signed Patient: Siri Landry Unit #: [id number] : 1940 Age/Sex: 80 / F ADM Date: 05/01/21 Loc: ER Room/Bed: Attending Dr: Ordering Provider/Ordering MD: William Vasquez Date of Service: 05/01/21 Procedure(s): CT cervical spin wo con* [id number] Accession Number(s): [id number] Report Number: [id number] WS: [id number] CT cervical spin wo con* [id number] REASON FOR EXAM: fall with headache IV CONTRAST ADMINISTERED: Noncontrast TOTAL EXAM DLP: 308.[address] scans at [facility] use at least one of these dose optimization techniques: automated exposure control; mA and/or kV adjustment per patient size (includes targeted exams where dose is matched to clinical indication); or iterative reconstruction. FINDINGS: Reversal of the normal lordosis of the cervical spine. No significant compression deformity or other focal abnormality of the cervical vertebrae. The odontoid is normal. Moderately severe degenerative changes in the facet joints at C2-C3, C3-C4, and C4-C5. There is degenerative anterolisthesis of 2 mm of C3 on C4. Degenerative anterolisthesis of 2 mm of C4 on C5. Normal facet joint alignment. No facet fracture. Moderate severe narrowing of the intervertebral disc spaces C4-C7. Degenerative gas in the disc space at C5-C6 with gas extending into the C5 and C6 vertebral bodies. CT/CT cervical spin wo con* [id number] IMPRESSION: No acute abnormality. Multilevel degenerative spondylosis. Dictated By: Remy Peterson Jr, MD Signed By: Remy Peterson Jr, MD Signed Date/Time: 05/01/21 1541 DD/ [address] [place] [address] CT Scan Report Signed Patient: Siri Landry Unit #: [id number] : 1940 Age/Sex: 80 / F ADM Date: 05/01/21 Loc: ER Room/Bed: Attending Dr: Ordering Provider/Ordering MD: William Vasquez Date of Service: 05/01/21 Procedure(s): CT head wo con* [id number] Accession Number(s): [id number] Report Number: [id number] WS: [email or web address] CT head wo con* [id number] REASON FOR EXAM: fall w/ headache IV CONTRAST ADMINISTERED: Noncontrast TOTAL EXAM DLP: 713.[address] scans at [facility] use at least one of these dose optimization techniques: automated exposure control; mA and/or kV adjustment per patient size (includes targeted exams where dose is matched to clinical indication); or iterative reconstruction. FINDINGS: Bony calvarium and the base of the skull are intact. Normal zygomatic arches. Normal bony orbits. No midline shift or other significant mass effect. No findings of intracranial hemorrhage. No extra-axial fluid collection. No acute focal brain parenchymal abnormality. Mild enlargement of the ventricles and CSF spaces about the brain. The examination is unchanged compared to previous study of 07/23/2017. CT/CT head wo con* [id number] IMPRESSION: Changes of the aging brain. No acute intracranial abnormality. Dictated By: Remy Peterson Jr, MD Signed By: Remy Peterson Jr, MD Signed Date/Time: 05/01/211533 DD/ 29 Discharge Plan Discharge Patient Disposition: Home Clinical Impression: Migraine Qualifiers: Migraine type: without aura Status migrainosus presence: without status migrainosus Intractability: not intractable Qualified Code(s): G43.009 - Migraine without aura, not intractable, without status migrainosus Condition: Stable Prescriptions: No Action calcium carbonate [Calcium 500] 500 mg calcium (1,250 mg) tablet,chewable 500 mg PO DAILY RF: 0 cyanocobalamin (vitamin B-12) 1,000 mcg capsule 1,000 mcg PO DAILY RF: 0 pyridoxine (vitamin B6) 100 mg tablet 50 mg PO DAILY RF: 0 Excedrin Extra Strength 250-250-65 mg tablet 1 tab PO DAILY PRN (Reason: Migraine Headache) RF: 0 calcitriol 0.25 mcg capsule 0.25 mcg PO DAILY RF: 0 ascorbate calcium (vitamin C) 500 mg tablet 500 mg PO DAILY RF: 0 albuterol sulfate [ProAir HFA] 90 mcg/actuation HFA aerosol inhaler 2 puff inhalation QID PRN (Reason: shortness of breath or wheezing) Qty: 8.5 RF: 2 Incruse Ellipta 62.5 mcg/actuation blister with device 1 inh inhalation DAILY Qty: 30 RF: 5 ezetimibe [Zetia] 10 mg tablet 10 mg PO DAILY Qty: 90 RF: 1 donepezil 10 mg tablet See Rx Instructions .ROUTE .COMPLEX Qty: 90 RF: 1 ketoconazole 2 % cream 1 applic topical BID 14 Days Qty: 60 RF: 0 biotin 1 mg capsule 1 mg PO DAILY RF: 0 krill [id number] 300-90 (27-45) mg capsule PO RF: 0 coenzyme Q10 [Co Q-10] 200 mg capsule 200 mg PO DAILY RF: 0 alpha lipoic acid 200 mg capsule 200 mg PO DAILY RF: 0 finasteride 5 mg tablet 0.25 mg PO DAILY RF: 0 famotidine 20 mg tablet 20 mg PO BID Qty: 60 RF: 0 levothyroxine 50 mcg tablet See Rx Instructions .ROUTE .COMPLEX Qty: 90 RF: 1 trazodone 50 mg tablet 50 mg PO .qhs Qty: 90 RF: 1 cholecalciferol (vitamin D3) 25 mcg (1,000 unit) capsule 3,000 unit PO DAILY RF: 0 betamethasone dipropionate 0.05 % Cream 1 applic TOPICAL DIRECTED RF: 0 Discharge Orders: Discharge ED (Routine); Ordered 05/01/21 Ordered By: William Vasquez Referrals: Rachele Guerrero FNP [Primary Care Provider] - Discharge Diet: Regular Discharge Activity: Resume usual activity Patient Instructions: Transient Ischemic Attack (ED), Migraine Headache (ED) Activity Restrictions/Additional Instructions: Follow-up with medical provider as directed in 5 to 7 days for reevaluation. Continue taking all previously prescribed medications. Return to the ER or your medical provider if condition worsens. Please read and understand discharge instructions. Thank you for choosing [facility] for your healthcare needs today. Please realize this is an emergency room and that we are providing you with a medical screening exam and this may not be complete and all inclusive of all the testing and or work up that you may need to determine your ailment or severity of your illness. It is very important that you follow up as instructed or that you return to the Emergency Department should you have concerns or if your condition changes or worsens in any way. Coding Level of Care Code ED Wet Machine Tender for Sweta Estrada Exam Comprehensive
[2021-05-01 14:51] VITALS: RESP 14
[2021-05-01 16:26] VITALS: BP 149/67; PULSE 56; RESP 17; O2SAT 98
== END 2021-05-01 16:27 | disposition home or self-care (01) ==
PROVIDERS: Emergency Provider Physician Assistant; PCP Nurse Practitioner Family
DX: G43.009 Migraine without aura, not intractable, without status migrainosus (principal); J44.9 Chronic obstructive pulmonary disease, unspecified; Z86.73 Personal history of transient ischemic attack (TIA), and cerebral infarction without residual deficits; E78.2 Mixed hyperlipidemia; I12.9 Hypertensive chronic kidney disease with stage 1 through stage 4 chronic kidney disease, or unspecified chronic kidney disease; N18.30 Chronic kidney disease, stage 3 unspecified
CPT/HCPCS: 70450; 72125; 99283

== ENCOUNTER → 2021-09-03 15:43 | Outpatient (BNVA) | payer MEDICARE, SELFPAY | PROVIDERS: PCP Nurse Practitioner Family; Visit Provider Nurse Practitioner Family | DX: R19.7 Diarrhea, unspecified (principal); I10 Essential (primary) hypertension; E55.9 Vitamin D deficiency, unspecified | CPT/HCPCS: 80053; 80061; 82306; 82607; 83735; 84439; 84443; 85025 ==

== ENCOUNTER → 2021-09-04 10:28 | Outpatient (BNVA) | payer MEDICARE, SELFPAY | PROVIDERS: PCP Nurse Practitioner Family; Visit Provider Nurse Practitioner Family | DX: R19.7 Diarrhea, unspecified (principal) | CPT/HCPCS: 83630; 87493; 87506 ==

== ENCOUNTER → 2021-09-11 14:37 | Outpatient (BNVA) | payer MEDICARE, SELFPAY | PROVIDERS: PCP Nurse Practitioner Family; Visit Provider Surgery | DX: R19.7 Diarrhea, unspecified (principal) | CPT/HCPCS: 99213 ==

== ENCOUNTER → 2021-09-25 11:30 | Outpatient (BNVA) | payer MEDICARE, SELFPAY | PROVIDERS: PCP Nurse Practitioner Family; Visit Provider Internal Medicine | DX: K21.9 Gastro-esophageal reflux disease without esophagitis (principal) | CPT/HCPCS: 80048; 82040; 83735; 84100 ==

== ENCOUNTER 2021-10-04 08:38 | Outpatient (CLI) | payer MEDICARE, SELFPAY ==
--- NOTE | 2021-10-04 08:56 | FL_ITS ---
WS: [email or web address] Air contrast barium enema, 10/04/2021 Clinical Data: DIARRHEA Comparison: None. Fluoroscopy time: 1min [id number] # of spot films: 7 Findings: The pulmonary film showed a levoscoliosis of the lumbar spine. There is degenerative arthritis of the right hip. The air and barium mixture was inserted in a retrograde fashion to fill the entire colon. There is reflux into the terminal ileum. The mucosal surface of the colon was normal. No polyps, mas ses, ulcerations, erosions or fistula were seen. The haustral pattern was unremarkable. The post evac uation film was normal. FL/FL barium enema w air* [id number] Impression: Normal air-contrast barium enema.
== END 2021-10-04 08:39 | disposition home or self-care (01) ==
LOC: RAD 08:51
PROVIDERS: PCP Nurse Practitioner Family; Visit Provider Surgery
DX: R19.7 Diarrhea, unspecified (principal)
CPT/HCPCS: 74280

== ENCOUNTER → 2021-10-16 11:43 | Outpatient (BNVA) | payer MEDICARE, SELFPAY | PROVIDERS: PCP Nurse Practitioner Family; Visit Provider Surgery | DX: Z98.890 Other specified postprocedural states (principal) | CPT/HCPCS: 99213 ==

== ENCOUNTER → 2021-10-24 10:06 | Outpatient (BNVA) | payer MEDICARE, SELFPAY | PROVIDERS: PCP Nurse Practitioner Family; Visit Provider Internal Medicine | DX: N18.30 Chronic kidney disease, stage 3 unspecified (principal); D63.1 Anemia in chronic kidney disease; E55.9 Vitamin D deficiency, unspecified; Z79.899 Other long term (current) drug therapy | CPT/HCPCS: 80048; 81003; 82040; 82306; 82310; 83735; 83970; 84100; 84550; 85018; 87077; 87086; 87184 ==

== ENCOUNTER 2021-10-25 07:27 | Outpatient (CLI) | payer MEDICARE, SELFPAY ==
--- NOTE | 2021-10-25 07:45 | US_ITS ---
WS: [email or web address] Exam: US liver [id number] Date/Time of Exam: 10/25/2021 7:40 AM Reason For Exam: diarrhea Compared to prior exam 09/07/2015. There was no sign of hepatic mass or nodule. The liver is not enlarged and measures 11.[address] dimension. The common bile duct is not dilated and measures 2 mm at maximal diameter. The pancreas is unremarkable. The gallbladder is incompletely distended but is otherwise unremarkable in appearan ce. No shadowing stones are seen. The right kidney appears normal and measures 8.4 x 2.75 x 3.54 cm. The IVC is patent. The abdominal aorta is normal in caliber. No free fluid or mass in the right abdom en. US/US liver [id number] IMPRESSION: 1. Unremarkable hepatic ultrasound.
== END 2021-10-25 07:28 | disposition home or self-care (01) ==
PROVIDERS: PCP Nurse Practitioner Family; Visit Provider Surgery
DX: R19.7 Diarrhea, unspecified (principal)
CPT/HCPCS: 76705

== ENCOUNTER → 2021-11-04 10:42 | Outpatient (BNVA) | payer MEDICARE, SELFPAY | PROVIDERS: PCP Nurse Practitioner Family; Visit Provider Surgery | DX: Z98.890 Other specified postprocedural states (principal); R10.13 Epigastric pain | CPT/HCPCS: 99024 ==

== ENCOUNTER → 2021-11-11 10:47 | Outpatient (BNVA) | payer MEDICARE, SELFPAY | PROVIDERS: PCP Nurse Practitioner Family; Visit Provider Nurse Practitioner Family | DX: R30.0 Dysuria (principal); R10.9 Unspecified abdominal pain; R14.0 Abdominal distension (gaseous); D72.819 Decreased white blood cell count, unspecified; D69.6 Thrombocytopenia, unspecified; R68.89 Other general symptoms and signs; I10 Essential (primary) hypertension | CPT/HCPCS: 80053; 81000; 85025 ==

== ENCOUNTER → 2021-11-25 11:57 | Outpatient (BNVA) | payer MEDICARE, SELFPAY | PROVIDERS: PCP Nurse Practitioner Family; Visit Provider Nurse Practitioner Family | DX: D69.6 Thrombocytopenia, unspecified (principal); D72.819 Decreased white blood cell count, unspecified; R68.89 Other general symptoms and signs | CPT/HCPCS: 80053 ==

== ENCOUNTER → 2022-03-06 13:51 | Outpatient (BNVA) | payer MEDICARE, SELFPAY | PROVIDERS: PCP Nurse Practitioner Family; Visit Provider Internal Medicine | DX: Z86.73 Personal history of transient ischemic attack (TIA), and cerebral infarction without residual deficits (principal); R06.02 Shortness of breath; I34.0 Nonrheumatic mitral (valve) insufficiency | CPT/HCPCS: 99213; 99214 ==

== ENCOUNTER → 2022-04-23 11:39 | Outpatient (BNVA) | payer MEDICARE, SELFPAY | PROVIDERS: PCP Nurse Practitioner Family; Visit Provider Internal Medicine | DX: N25.81 Secondary hyperparathyroidism of renal origin (principal) | CPT/HCPCS: 80048; 81000; 82310; 83970; 84100; 84550 ==

== ENCOUNTER 2022-04-24 09:48 | Outpatient (CLI) | payer MEDICARE, SELFPAY ==
--- NOTE | 2022-04-24 12:15 | USCV_ITS ---
Siri Landry Age: 81 Gender: F : 1940 Exam Date: 04/24/2022 12:30 Ordering Phys: Timmy Leach M.D ([email or web address]) Technologist: OLIVERIO Exam Location: [facility] Indication: SHORTNESS OF BREATH BP: 112 / 64 HR: 38 Rhythm: Atrial fibrillation Technical Quality: Adequate MEASUREMENTS (Male / Female) Normal Values 2D ECHO LVOT Diameter 2.0 cm LV Ejection Fraction MOD 2C 77.5 % LV Ejection Fraction 2C AL 78.3 % LA Diameter 2.4 cm LA Width 3.3 cm LA Height 4.7 cm RA Width 3.8 cm RA Height 4.7 cm Aorta at Sinotubular Diameter 1.9 cm IVC Diameter 1.0 cm M-MODE Aortic Annulus Diameter 2.6 cm LA Ao Ratio MM 0.9 MV E Point Septal Separation 0.2 cm DOPPLER AV Peak Velocity 148.3 cm/s LVOT Peak Velocity 105.0 cm/s AV Area Cont Eq vti 2.3 cm squared AV Area Cont Eq pk 2.2 cm squared MV Peak Velocity 103.0 cm/s MV Area PHT 3.5 cm squared Mitral E to A Ratio 1.1 MV E' Velocity 47.0 cm/s Mitral E to MV E' Ratio 8.8 Mitral E to LV E' Lateral Ratio 9.0 Mitral E to LV E' Septal Ratio 8.5 TR Peak Velocity 224.1 cm/s TR Peak Gradient 20.1 mmHg TR Mean Velocity 170.9 cm/s TR Mean Gradient 12.4 mmHg TR Velocity Time Integral 66.9 cm TV Peak E Velocity 59.0 cm/s Right Atrial Pressure 3.0 mmHg Pulmonary Artery Systolic Pressu 23.1 mmHg PV Peak Velocity 82.0 cm/s RV Acceleration Time 0.2 s RV Ejection Time 0.4 s RV AcT/ET 0.5 FINDINGS Left Ventricle Left ventricle is normal in size. LV systolic function is normal with EF of 55-60%. No regional wall motion abnormalities. Diastolic function is normal Right Ventricle Normal in size and function Right Atrium Normal in size Left Atrium Normal in size Mitral Valve Thickened mitral valve. Mild to moderate mitral regurgitation Aortic Valve Structurally normal aortic valve. No significant stenosis or regurgitation. Tricuspid Valve Trace tricuspid regurgitation. Insufficient TR jet to calculate RVSP Pulmonic Valve Not well visualized. Pericardium Normal Aorta Normal in size IVC Appears to be normal CONCLUSIONS LV systolic function is normal with EF of 55-60% Diastolic function is normal Mild to moderate mitral regurgitation No comparison studies are available Compared to prior echocardiogram from 2019, no significant changes are seen Timmy Leach MD (Electronically Signed) Final Date: 11 May 2022 09:35 S
== END 2022-04-24 09:49 | disposition home or self-care (01) ==
LOC: RAD 09:49
PROVIDERS: PCP Nurse Practitioner Family; Visit Provider Internal Medicine
DX: R06.02 Shortness of breath (principal)
CPT/HCPCS: 80048; 80076; 82607; 82746; 84439; 84443; 93306

== ENCOUNTER 2022-04-24 09:48 | Outpatient (CLI) | payer MEDICARE, SELFPAY ==
--- NOTE | 2022-04-24 10:00 | NM_ITS ---
WS: [email or web address] NUCLEAR MEDICINE HIDA SCAN WITH GALLBLADDER EJECTION FRACTION HISTORY: R10.11 - Right upper quadrant pain COMPARISON: None available. TECHNIQUE: The patient was intravenously injected with 7.4 mCi of TC99m Mebrofenin. Immediate imaging over the right upper quadrant was followed by 5 minute image and additional images for a total of 60 minutes. Normal uptake of radiotracer throughout the liver. Activity identified in the gallbladder at 15 minutes and well distended by 60 minutes. Activity in the proximal small bowel was seen by 20 minutes. Good washout of the radiotracer from the liver by 60 minutes. The patient then drank 8 ounces of Ensure Plus. Ejection fraction at 60 minutes was 97%. Normal GB ej ection fraction is 35-75%. Post fatty meal symptoms: None. NM/NM hepatobiliary w phar* [id number] IMPRESSION: 1. Normal HIDA scan. 2. Normal gallbladder ejection fraction.
== END 2022-04-24 09:49 | disposition home or self-care (01) ==
LOC: RAD 09:49
PROVIDERS: PCP Nurse Practitioner Family; Visit Provider Nurse Practitioner Family
DX: R10.11 Right upper quadrant pain (principal)
CPT/HCPCS: 78227; A9537

== ENCOUNTER → 2022-05-01 12:26 | Outpatient (BNVA) | payer MEDICARE, SELFPAY | PROVIDERS: PCP Nurse Practitioner Family; Visit Provider Nurse Practitioner Family | DX: R10.13 Epigastric pain (principal); R19.7 Diarrhea, unspecified | CPT/HCPCS: 83630; 87338; 87493; 87506 ==

== ENCOUNTER → 2022-05-21 17:08 | Outpatient (BNVA) | payer MEDICARE, SELFPAY | PROVIDERS: PCP Nurse Practitioner Family; Visit Provider Nurse Practitioner Family | DX: R14.0 Abdominal distension (gaseous) (principal); L23.9 Allergic contact dermatitis, unspecified cause | CPT/HCPCS: 86003; 86008 ==

== ENCOUNTER 2022-07-03 11:22 | Outpatient (CLI) | payer MEDICARE, SELFPAY ==
--- NOTE | 2022-07-03 13:00 | CT_ITS ---
WS: [email or web address] CT ABDOMEN AND PELVIS WITH CONTRAST HISTORY: R10.32 - Left lower quadrant pain TECHNIQUE: Imaging performed of the abdomen and pelvis with IV contrast. Single phase imaging of the abdomen. Coronal and sagittal reformats are submitted. All CT scans at [facility] use at [address] one of these dose optimization techniques: automated exposure control; mA and/or kV adjustment per patient size (includes targeted exams where dose is matched to clinical indication); or iterative re construction. IV CONTRAST: Omnipaque 350; 100 mL IV. Oral contrast: Yes DLP: 349.63 mGy.cm COMPARISON: 08/31/2020 Lower thorax: Lung bases are clear. Moderate atrial enlargement. No hiatal hernia. Liver/biliary system: Normal size with no intrahepatic dilatation. Gallbladder: Slightly contracted gallbladder. No adjacent inflammation. Pancreas: Normal size pancreas and pancreatic duct. No adjacent inflammation. Spleen: Normal size spleen. No mass or infarct. Adrenal glands: Normal. Right kidney: Normal. Left kidney: Normal. Aorta: Atherosclerotic plaque within the aorta. Heavy calcified plaque at the origins of the celiac a xis and SMA. Lymphadenopathy: None. Free fluid: None. GI tract: Stomach is well distended with oral contrast. Asymmetric circumferential thickening involvi ng the antrum of the stomach. No small bowel obstruction. Mild diffuse fecal retention. No obstructiv e pattern is identified. Abdominal wall: Unremarkable abdominal wall. No hernia. Pelvis: No free fluid or adenopathy within the pelvis. Normally distended urinary bladder. Bones: Severe RIGHT hip joint osteoarthritis. CT/CT abdomen pelvis w con* [id number] IMPRESSION: 1. Asymmetric circumferential wall thickening involving the antrum of the stom ach. Probably due to gastritis or underlying ulcer. 2. Diffuse constipation. No evidence for acute diverticulitis or obstruction. 3. Extensive atherosclerotic plaque aorta and origin of the mesenteric arterie s. Patient at risk for GI tract ischemia. Not evident at this time.
[2022-07-03] MEDS: iohexol 350 mg/mL 500 mL Btl (per mL) IV (14:21)
[2022-07-03] MEDS: iohexol 350 mg/mL 500 mL Btl (per mL) PO (14:22)
== END 2022-07-03 11:23 | disposition home or self-care (01) ==
PROVIDERS: PCP Nurse Practitioner Family; Visit Provider Nurse Practitioner Family
DX: R10.32 Left lower quadrant pain (principal); I70.0 Atherosclerosis of aorta; K55.1 Chronic vascular disorders of intestine
CPT/HCPCS: 74177; Q9967

== ENCOUNTER → 2022-10-20 12:27 | Outpatient (BNVA) | payer MEDICARE, SELFPAY | PROVIDERS: PCP Nurse Practitioner Family; Visit Provider Nurse Practitioner Gerontology | DX: N18.32 Chronic kidney disease, stage 3b (principal); E55.9 Vitamin D deficiency, unspecified | CPT/HCPCS: 80048; 81003; 82040; 82306; 82310; 83735; 83970; 84100; 84550; 85018 ==

== ENCOUNTER → 2022-11-06 14:00 | Outpatient (BNVA) | payer MEDICARE, SELFPAY | PROVIDERS: PCP Nurse Practitioner Family; Visit Provider Nurse Practitioner Family | DX: F02.80 Dementia in other diseases classified elsewhere, unspecified severity, without behavioral disturbance, psychotic disturbance, mood disturbance, and anxiety (principal); G30.9 Alzheimer's disease, unspecified; N76.3 Subacute and chronic vulvitis; E55.9 Vitamin D deficiency, unspecified; K21.9 Gastro-esophageal reflux disease without esophagitis; N18.9 Chronic kidney disease, unspecified | CPT/HCPCS: 81003; 87077; 87086; 87184 ==

== ENCOUNTER → 2022-12-09 15:36 | Outpatient (BNVA) | payer MEDICARE, SELFPAY | PROVIDERS: PCP Nurse Practitioner Family; Visit Provider Internal Medicine | DX: R06.02 Shortness of breath (principal); I34.0 Nonrheumatic mitral (valve) insufficiency; Z86.73 Personal history of transient ischemic attack (TIA), and cerebral infarction without residual deficits | CPT/HCPCS: 99214 ==

== ENCOUNTER → 2023-04-20 12:51 | Outpatient (BNVA) | payer MEDICARE, SELFPAY | PROVIDERS: PCP Nurse Practitioner Family; Visit Provider Internal Medicine | DX: N18.9 Chronic kidney disease, unspecified (principal); E03.8 Other specified hypothyroidism; I10 Essential (primary) hypertension; D69.6 Thrombocytopenia, unspecified; D72.819 Decreased white blood cell count, unspecified; E78.2 Mixed hyperlipidemia; E55.9 Vitamin D deficiency, unspecified | CPT/HCPCS: 80053; 80061; 82306; 82310; 82542; 83970; 84100; 84443; 84550; 85025 ==

== ENCOUNTER → 2023-04-21 11:24 | Outpatient (BNVA) | payer MEDICARE, SELFPAY | PROVIDERS: PCP Nurse Practitioner Family; Visit Provider Internal Medicine | DX: N18.9 Chronic kidney disease, unspecified (principal) | CPT/HCPCS: 81000 ==

== ENCOUNTER → 2023-08-12 15:02 | Outpatient (BNVA) | payer MEDICARE, SELFPAY | PROVIDERS: PCP Nurse Practitioner Family; Visit Provider Nurse Practitioner Family | DX: M81.0 Age-related osteoporosis without current pathological fracture (principal); E03.8 Other specified hypothyroidism; E78.2 Mixed hyperlipidemia; E55.9 Vitamin D deficiency, unspecified | CPT/HCPCS: 80053; 80061; 82306; 82607; 84439; 84443; 85025 ==

== ENCOUNTER → 2023-09-08 11:02 | Outpatient (BNVA) | payer MEDICARE, SELFPAY | PROVIDERS: PCP Nurse Practitioner Family; Visit Provider Nurse Practitioner Family | DX: I87.2 Venous insufficiency (chronic) (peripheral) (principal); Z87.891 Personal history of nicotine dependence; I12.9 Hypertensive chronic kidney disease with stage 1 through stage 4 chronic kidney disease, or unspecified chronic kidney disease; N18.9 Chronic kidney disease, unspecified | CPT/HCPCS: 99214 ==

== ENCOUNTER → 2023-10-20 16:54 | Outpatient (BNVA) | payer MEDICARE, SELFPAY | PROVIDERS: PCP Nurse Practitioner Family; Visit Provider Nurse Practitioner Family | DX: R10.32 Left lower quadrant pain (principal) | CPT/HCPCS: 80053; 85025 ==

== ENCOUNTER → 2023-10-28 13:23 | Outpatient (BNVA) | payer MEDICARE, SELFPAY | PROVIDERS: PCP Nurse Practitioner Family; Visit Provider Nurse Practitioner Family | DX: R10.32 Left lower quadrant pain (principal) | CPT/HCPCS: G0328 ==

== ENCOUNTER → 2024-04-26 11:57 | Outpatient (BNVA) | payer MEDICARE, SELFPAY | PROVIDERS: PCP Nurse Practitioner Family; Visit Provider Nurse Practitioner Family | DX: E03.8 Other specified hypothyroidism (principal); I10 Essential (primary) hypertension; E55.9 Vitamin D deficiency, unspecified | CPT/HCPCS: 80053; 80061; 82306; 84443; 85025 ==

== ENCOUNTER → 2024-06-14 14:49 | Outpatient (BNVA) | payer MEDICARE, SELFPAY | PROVIDERS: PCP Nurse Practitioner Family; Visit Provider Internal Medicine | DX: I34.0 Nonrheumatic mitral (valve) insufficiency (principal); R06.02 Shortness of breath; Z86.73 Personal history of transient ischemic attack (TIA), and cerebral infarction without residual deficits | CPT/HCPCS: 99214 ==